=== PATIENT | male | born 1985 | race Caucasian/White ===

== ENCOUNTER 2019-10-07 19:57 | Emergency (ER) | payer MEDICAID, SELFPAY ==
[~2019-10-07] VITALS: Ht 180.3 cm; Wt 100.9 kg
--- NOTE | 2019-10-07 20:20 | NUR ---
1ST CONTACT C PT. STATES L SIDED CP, WHEN HE BREATHS. C WHITE PHLEM X 3 MONTHS. PT HAS BEEN SEEN & WORKED UP AT [facility] FOR CP & ENT, DX X STREP & HAD T/A, RECENTLY FINISHED ABX. LUNGS CTA. TBS.
[2019-10-07 21:16] LABS: BASOPHILS # (AUTO) 0.05 x10^3/uL (0-0.1); BASOPHILS % (AUTO) 1 % (0-1); EOSINOPHILS # (AUTO) 0.14 x10^3/uL (0-0.4); EOSINOPHILS % (AUTO) 2 % (1-7); LYMPHOCYTES # (AUTO) 2.88 x10^3/uL (1-3.4); LYMPHOCYTES % (AUTO) 40 % (22-44); MD NO; MEAN CORPUSCULAR HGB CONC 33.9 g/dL (33.2-36.2); MEAN CORPUSCULAR VOLUME 88.4 fL (81-97); MEAN PLATELET VOLUME 9.2 fL (7.4-10.4); MONOCYTES # (AUTO) 0.58 x10^3/uL (0.2-0.8); MONOCYTES % (AUTO) 8 % (2-9); NEUTROPHILS # (AUTO) 3.64 x10^3/uL (1.8-6.8); NEUTROPHILS % (AUTO) 50 % (42-75); PLATELET COUNT 237 x10^3/uL (130-400); RED BLOOD COUNT 5.19 x10^6/uL (4.38-5.82); RED CELL DISTRIBUTION WIDTH 12.5 % (9.4-14.8)
[2019-10-07 21:25] LABS: ALANINE AMINOTRANSFERASE 60 U/L (12-78); ALBUMIN 4.1 g/dL (3.4-5.0); ANION GAP 7 mmol/L (5-15); CALCIUM 8.5 mg/dL (8.5-10.1); CHLORIDE 107 mmol/L (98-107); CREATININE 0.76 mg/dL (0.7-1.3)
[2019-10-07 21:30] LABS: ALKALINE PHOSPHATASE 63 U/L (45-117); BILIRUBIN,TOTAL 0.4 mg/dL (0.2-1.0); TOTAL PROTEIN 7.8 g/dL (6.4-8.2); TROPONIN I < 0.015 ng/mL (0.000-0.045)
--- NOTE | 2019-10-07 21:52 | NUR ---
PT UPDATED C LABS. DENIES ANY NEEDS. CALL [facility]. WILL CTM.
--- NOTE | 2019-10-07 22:41 | NUR ---
IV PLACED. AWARE OF PLAN FOR CTA. FAMILY AT BS. WILL CTM.
--- NOTE | 2019-10-07 23:47 | NUR ---
back from ct.
[2019-10-08] MEDS ORDERED: OMNIPAQUE 350 MG/ML, 100ML BOTTLE ONE (00:19)
[2019-10-08 00:21] VITALS: BP 109/64
--- NOTE | 2019-10-08 00:21 | NUR ---
pt aware plan to dc home.
== END 2019-10-08 00:40 | disposition home or self-care (01) ==
LOC: ED 21:06
DX: R07.89 Other chest pain (principal); R09.1 Pleurisy; M79.10 Myalgia, unspecified site; R06.02 Shortness of breath; R94.31 Abnormal electrocardiogram [ECG] [EKG]
CPT/HCPCS: 36415; 71045; 71275; 80053; 84484; 85025; 85379; 87806; 93005; 99285; Q9967; G0475

== ENCOUNTER 2019-10-14 22:49 | Emergency (ER) | payer MEDICAID ==
[~2019-10-14] VITALS: Ht 180.3 cm; Wt 101.7 kg
[2019-10-14 22:54] VITALS: BP 133/90
== END 2019-10-15 00:15 | disposition left against medical advice (07) ==
LOC: ED 22:50
DX: R10.9 Unspecified abdominal pain (principal); Z53.21 Procedure and treatment not carried out due to patient leaving prior to being seen by health care provider

== ENCOUNTER 2019-10-21 07:45 | Emergency (ER) | payer MEDICAID ==
[~2019-10-21] VITALS: Ht 180.3 cm; Wt 101.6 kg
[2019-10-21 07:46] VITALS: BP 137/101
[2019-10-21 08:24] LABS: BASOPHILS # (AUTO) 0.08 x10^3/uL (0-0.1); BASOPHILS % (AUTO) 1 % (0-1); EOSINOPHILS # (AUTO) 0.13 x10^3/uL (0-0.4); EOSINOPHILS % (AUTO) 2 % (1-7); LYMPHOCYTES % (AUTO) 29 % (22-44); MD NO; MEAN CORPUSCULAR VOLUME 88.2 fL (81-97); MEAN PLATELET VOLUME 8.7 fL (7.4-10.4); MONOCYTES # (AUTO) 0.43 x10^3/uL (0.2-0.8); MONOCYTES % (AUTO) 7 % (2-9); NEUTROPHILS # (AUTO) 3.55 x10^3/uL (1.8-6.8); NEUTROPHILS % (AUTO) 60 % (42-75); PLATELET COUNT 208 x10^3/uL (130-400); RED BLOOD COUNT 5.09 x10^6/uL (4.38-5.82); RED CELL DISTRIBUTION WIDTH 12.6 % (9.4-14.8)
[2019-10-21 08:36] LABS: ALANINE AMINOTRANSFERASE 78 U/L (12-78); ALBUMIN 3.6 g/dL (3.4-5.0); ANION GAP 9 mmol/L (5-15); CALCIUM 9.1 mg/dL (8.5-10.1); CHLORIDE 109 mmol/L (98-107); CREATININE 0.78 mg/dL (0.7-1.3)
[2019-10-21 08:39] LABS: MICROSCOPIC AUTO
[2019-10-21 08:39] LABS: ALKALINE PHOSPHATASE 56 U/L (45-117); BILIRUBIN,TOTAL 0.4 mg/dL (0.2-1.0); TOTAL PROTEIN 7.2 g/dL (6.4-8.2)
--- NOTE | 2019-10-21 10:04 | NUR ---
Patient/Caregiver given discharge instructions and they have confirmed that they understand the instructions. Patient ambulatory with steady gait.
== END 2019-10-21 10:09 | disposition home or self-care (01) ==
LOC: ED 08:11
DX: R19.03 Right lower quadrant abdominal swelling, mass and lump (principal)
CPT/HCPCS: 36415; 74176; 80053; 81001; 83690; 85025; 87086; 99284